=== PATIENT | female | born 1955 | race Caucasian/White ===

== ENCOUNTER 2017-09-28 14:11 | Emergency (ER) | payer OTHER, MEDICARE ==
[~2017-09-28] VITALS: Ht 170.2 cm; Wt 77.2 kg
[~2017-09-28 14:11] MED LIST: AMLO5TAB4 PO; CLON-529 PO; DEXL60CA3 PO; HYDR-565 PO; LISI-600 PO; METO50TA7 PO; NITR0.4T51 SL
[2017-09-28] MEDS ORDERED: ondansetron/PF 4mg/2ml inj IV ONE (14:15)
[2017-09-28] MEDS ORDERED: HYDROmorphone 1 mg/ml syringe IV ONE (14:15)
[2017-09-28] MEDS ORDERED: HYDROmorphone 2mg/ml vial IV ONE (14:45)
[2017-09-28] MEDS ORDERED: HYDROcodone/acetaminophen 10/325mg tab PO ONE (16:20)
== END 2017-09-28 16:38 | disposition home or self-care (01) ==
LOC: ER 14:11
DX: S80.02XA Contusion of left knee, initial encounter (principal); S93.402A Sprain of unspecified ligament of left ankle, initial encounter; I10 Essential (primary) hypertension; M81.0 Age-related osteoporosis without current pathological fracture; F12.10 Cannabis abuse, uncomplicated; W01.0XXA Fall on same level from slipping, tripping and stumbling without subsequent striking against object, initial encounter; Y93.89 Activity, other specified; Y92.89 Other specified places as the place of occurrence of the external cause; Y99.8 Other external cause status; Z88.8 Allergy status to other drugs, medicaments and biological substances
CPT/HCPCS: 29515; 73560; 73610; 96374; 96375; 99284; J1170; J2405